=== PATIENT | female | born 1955 | race Two or more races ===

== ENCOUNTER 2019-04-08 08:46 | Outpatient (CLI) | payer OTHER | END 2019-04-08 08:59 | disposition home or self-care (01) | LOC: NUCLEAR 08:46 | DX: C85.88 Other specified types of non-Hodgkin lymphoma, lymph nodes of multiple sites (principal) | CPT/HCPCS: 78816; A9552 ==

== ENCOUNTER 2020-06-30 08:10 | Outpatient (CLI) | payer OTHER | END 2020-06-30 08:11 | disposition home or self-care (01) | LOC: NUCLEAR 08:10 | PROVIDERS: ATTEND Internal Medicine | DX: C81.0 Nodular lymphocyte predominant Hodgkin lymphoma (principal) | CPT/HCPCS: 78816; A9552 ==

== ENCOUNTER 2021-11-20 07:14 | Outpatient (CLI) | payer OTHER | END 2021-11-20 07:16 | disposition home or self-care (01) | LOC: NUCLEAR 07:14 | PROVIDERS: ATTEND Internal Medicine | DX: C81.90 Hodgkin lymphoma, unspecified, unspecified site (principal) | CPT/HCPCS: 78816; A9552 ==

== ENCOUNTER 2022-06-13 07:54 | Outpatient (CLI) | payer OTHER | END 2022-06-13 07:56 | disposition home or self-care (01) | LOC: NUCLEAR 07:54 | PROVIDERS: ATTEND Internal Medicine | DX: Z08 Encounter for follow-up examination after completed treatment for malignant neoplasm (principal) | CPT/HCPCS: 78816; A9552 ==

== ENCOUNTER 2022-11-14 12:00 | Outpatient (CLI) | payer OTHER | END 2022-11-14 12:03 | disposition home or self-care (01) | LOC: SONOGRAMA 12:00 | PROVIDERS: ATTEND Pathology Anatomic Pathology & Clinical Pathology | DX: D34 Benign neoplasm of thyroid gland (principal); E04.9 Nontoxic goiter, unspecified ==

== ENCOUNTER 2023-01-28 08:18 | Outpatient (CLI) | payer OTHER | END 2023-01-28 08:20 | disposition home or self-care (01) | LOC: NUCLEAR 08:18 | PROVIDERS: ATTEND Internal Medicine | DX: C81.90 Hodgkin lymphoma, unspecified, unspecified site (principal) | CPT/HCPCS: 78815; A9552 ==